=== PATIENT | female | born 1975 | race Caucasian/White ===

== ENCOUNTER 2019-09-07 06:57 | Inpatient (IN) | payer BC ==
[~2019-09-07 06:57] MED LIST: Buffered Lidocaine 1% SYRIN* 1 ML/SYRINGE INTRADERM ONE; Dexamethasone TAB* 4 MG PO ONE; DiMENhydriNATE IV* 50 MG/ML VIAL IV PUSH PRN; Famotidine IV* 10 MG/ML 2 ML (20 mg) IV ONE; HYDROmorphone INJ1* 1 MG/ML SYRINGE IV PRN; Lactated Ringers 1000 ML Bag* 1,000 ML IV SCH; Naloxone* 0.4 MG/ML 1 ML VIAL IV PRN; Ondansetron ODT TAB* 4 MG PO ONE; PROCHLORPERAZINE INJ 5 MG/ML 2 ML VIAL IV PRN; Scopolamine 1.5 mg* PATCH TRANSDERM PRN; fentaNYL* 50 MCG/ML 2 ML VIAL (100 MCG VIAL) IV PRN
--- OUTSIDE RECORDS SUMMARY | 2019-09-07 07:00 | XMS REPORT | Continuity of Care Document ---
:1975 External Reference #:[id number] Author Name Manish Butler DO [facility] (transmitted by agent of provider Cony Mitchell) Address [address] [place] [address] Problems Description No Information Available Social History Type Date Description Comments Sex Unknown Tobacco Use Start: Unknown Never Smoked Cigarettes Smoking Status Reviewed: 07/23/19 Never Smoked Cigarettes ETOH Use Drinks Alcoholic Beverages Occasionally Tobacco Use Start: Unknown Patient has never smoked Exercise Type/Frequency Exercises regularly Allergies, Adverse Reactions, Alerts Active Allergies Reaction Severity Comments Date Penicillins Anaphylaxis 08/02/2016 Keflex Contact dermatitis 08/02/2016 Trulicity 07/23/2019 Medications Active Medications SIG Qnty Indications Ordering Provider Date 1 by mouth every 84tabs Z30.09 Conner Palencia MD 01/05/2019 day 1-20mg-mcg(24) Tablets Ibuprofen as needed Unknown 800mg Tablets Metformin HCL 1 by mouth twice Unknown 500mg a day Tablets Vitamin D 1 by mouth every Unknown 2000Unit day Capsules Levothyroxine Sodium once a day Unknown 100mcg Solution Rec Lisinopril 1 by mouth every Unknown 10mg Tablets day Magnesium 1 by mouth every Unknown 250mg Tablets day Venlafaxine HCL ER 1 capsule daily Unknown 75mg with food Tablets ER 24HR Biotin 1 po daily Unknown 1mg Capsules Radha 2 tabs daily Unknown Capsules Effexor XR 1 by mouth every Unknown 75mg Caps ER day 24HR Vicodin take 1 - 2 by Unknown 5-300mg Tablets mouth every 6 hours as needed History Medications Tinidazole 2 tablets po bid 56tabs Conner Palencia MD 05/18/2019 - 500mg Tablets x 14 days 07/22/2019 Metronidazole 1 pill bid x 7 14tabs Conner Palencia MD 04/14/2019 - 500mg Tablets days 07/22/2019 Metronidazole 1 pill bid x 7 14tabs Sun Gonsalez 02/11/2019 - 500mg Tablets days [employer]-Cde 04/12/2019 Immunizations Description No Information Available Vital Signs Date Vital Result Comment 07/23/2019 1:17pm Height 66 inches 5'6" Weight 286.00 lb with shoes Heart Rate 99 /min BP Systolic 170 mmHg LA BP Diastolic 100 mmHg LA BP Systolic Sitting 170 mmHg Ra BP Diastolic Sitting 96 mmHg Ra BP Systolic Standing 162 mmHg Ra BP Diastolic Standing 90 mmHg Ra BMI (Body Mass Index) 46.2 kg/m2 Ejection Fraction None 05/11/2019 8:12am Height 66 inches 5'6" Weight 280.00 lb BP Systolic 144 mmHg BP Diastolic 86 mmHg Respiratory Rate 16 /min Body Temperature 98.6 F O2 % BldC Oximetry 93 % BMI (Body Mass Index) 45.2 kg/m2 Results Description No Information Available Procedures Description No Information Available Medical Devices Description No Information Available Encounters Type Date Location Provider Dx Diagnosis Office Visit 05/11/2019 [facility] Conner Palencia MD N76.0 Acute vaginitis 8:00a [facility] [place] Office Visit 04/13/2019 [facility] Conner Palencia MD N76.1 Subacute and 8:00a [facility] Assessments Date Code Description Provider 07/23/2019 Z01.810 Encounter for preprocedural Manish Butler DO FAC cardiovascular examination 07/23/2019 R94.31 Abnormal electrocardiogram [ECG] [EKG] Manish Butler DO FACC 05/11/2019 N76.0 Acute vaginitis Conner Palencia MD 04/13/2019 N76.1 Subacute and chronic vaginitis Conner Palencia MD Plan of Treatment 07/23/2019 - Manish Butler DO FACCZ01.810 Encounter for preprocedural cardiovascular examinationNew Orders:Echocardiogram, Ordered: 07/23/19Follow up: Please schedule [place] [facility] [place]may need defin[place]) f/u PRNR94.31 Abnormal electrocardiogram [ECG] [EKG] Functional Status Description No Information Available Mental Status Description No Information Available Referrals Description No Information Available
[2019-09-07] MEDS ORDERED: Ondansetron ODT TAB* 4 MG ONE (07:36)
[2019-09-07] MEDS ORDERED: Clindamycin 900 MG/D5W BAG(*) 900 MG/50 ML BAG IVPB ONE (07:37)
[2019-09-07] MEDS ORDERED: Famotidine IV* 10 MG/ML 2 ML (20 mg) ONE (07:37)
[2019-09-07] MEDS ORDERED: Buffered Lidocaine 1% SYRIN* 1 ML/SYRINGE INTRADERM ONE (07:37)
[2019-09-07] MEDS ORDERED: Dexamethasone TAB* 4 MG ONE (07:37)
[2019-09-07] MEDS ORDERED: Midazolam* 1 MG/ML 5 ML VIAL (5 MG) ONE (07:58)
[2019-09-07] MEDS ORDERED: Rocuronium* 10 MG/ML VIAL ONE (07:58)
[2019-09-07] MEDS ORDERED: fentaNYL* 50 MCG/ML 5 ML VIAL (250 MCG VIAL) ONE (07:58)
[2019-09-07] MEDS ORDERED: KETAMINE HCL* 50 MG/ML 10 ML VIAL ONE (07:58)
[2019-09-07] MEDS ORDERED: Bupivacaine 0.25% W/EPI* 10 ML SDV ONE (08:35)
[2019-09-07] MEDS ORDERED: Heparin VIAL(*) 5000 UNITS/ML VIAL (FIVE THOUSAND) ONE (08:53)
[2019-09-07] MEDS ORDERED: Bupivacaine 0.25% EPI 200,000* 30 ML SDV ONE (09:05)
[2019-09-07] MEDS ORDERED: Propofol* 10 MG/ML 20 ML BTL ONE (09:18)
[2019-09-07] MEDS ORDERED: Lidocaine 2% PF * 5 ML VIAL ONE (09:18)
[2019-09-07] MEDS ORDERED: EPHEDrine (Pressors)* 50 MG/ML VIAL ONE (09:27)
[2019-09-07] MEDS ORDERED: Sugammadex * 200 MG/2 ML VIAL IV PUSH ONE (09:27)
[2019-09-07] MEDS ORDERED: Phenylephrine 10 MG/ML VIAL* 1 ML VIAL ONE (09:29)
[2019-09-07] MEDS ORDERED: Acetaminophen IV 1GM/100ML * 100 ML ONE (09:45)
[2019-09-07] MEDS ORDERED: HYDROmorphone INJ1* 1 MG/ML SYRINGE ONE ×2 (09:55→10:38)
[2019-09-07] MEDS ORDERED: hydrALAZINE IV* 20 MG/ML VIAL ONE (10:04)
[2019-09-07] MEDS ORDERED: Metoprolol Tartrate IV* 1 MG/ML 5 ML VIAL ONE (10:10)
[2019-09-07] MEDS ORDERED: HYDROcodone/ACET. 7.5/325 LIQ* 15 ML UDC PO PRN (10:21)
[2019-09-07] MEDS ORDERED: Acetaminophen ADULT LIQ* 650 MG/20.3 ML UDC PO PRN (10:21)
--- NOTE | 2019-09-07 10:21 | BRIEFOPN ---
Brief Operative/Procedure Note - Operation Details Pre-Op Diagnosis: morbid obesity Post-Op Diagnosis: same Procedures: laparoscopic sleeve gastrectomy Surgeon(s)/Proceduralists: Paula. Assist: CARMEN Concepcion Anesthesia: GET Estimated Blood Loss: < 50 ml; IVF: 1300 ml RL Findings: as above Specimen(s)/Culture(s) Description: portion of stomach Complications: none
[2019-09-07] MEDS ORDERED: DiMENhydriNATE IV* 50 MG/ML VIAL ONE (10:37)
[2019-09-07] MEDS: HYDROmorphone INJ1* 1 MG/ML SYRINGE IV SLOW PU PRN ×2 (10:44→15:06)
[2019-09-07] MEDS ORDERED: Ondansetron INJ* 2 MG/ML VIAL ONE (11:13)
[2019-09-07] MEDS: Ondansetron INJ* 2 MG/ML VIAL IV PRN (11:14)
[2019-09-07] MEDS: Lactated Ringers 1000 ML Bag* 1,000 ML IV SCH ×2 (12:07→18:39)
[2019-09-07] MEDS: Ketorolac INJ* 30 MG/ML 1 ML VIAL IV SCH ×2 (13:14→19:55)
[2019-09-07] MEDS: Heparin VIAL(*) 5000 UNITS/ML VIAL (FIVE THOUSAND) SUBCUT SCH ×2 (15:06→21:28)
[2019-09-07] MEDS ORDERED: Metoclopramide IV* 5 MG/ML 2 ML VIAL IV PRN (15:34)
[2019-09-07] MEDS: Famotidine IV* 10 MG/ML 2 ML (20 mg) IV SLOW PU SCH (21:28)
[2019-09-08] MEDS: Ketorolac INJ* 30 MG/ML 1 ML VIAL IV SCH ×4 (01:20→20:17)
[2019-09-08] MEDS: Lactated Ringers 1000 ML Bag* 1,000 ML IV SCH ×2 (01:24→08:12)
[2019-09-08] MEDS: Ondansetron INJ* 2 MG/ML VIAL IV PRN ×2 (01:28→17:32)
[2019-09-08] MEDS: HYDROmorphone INJ1* 1 MG/ML SYRINGE IV SLOW PU PRN (04:41)
[2019-09-08] MEDS: Heparin VIAL(*) 5000 UNITS/ML VIAL (FIVE THOUSAND) SUBCUT SCH ×3 (06:11→21:41)
--- NOTE | 2019-09-08 07:25 | PN ---
Progress Note - Progress Note Date of Service: 09/08/19 SOAP: Subjective: Had pain and nausea last pm but doing well today. Would like to drink. Objective: Vital Signs Temp 98.4 F 09/08/19 07:20 Pulse 78 09/08/19 07:20 Resp 16 09/08/19 07:20 BP 115/68 09/08/19 07:20 Pulse Ox 96 09/08/19 07:20 Gen: NAD Abd: incisions c/d/i; soft and min tender. Intake & Output 09/07/19 09/08/19 09/08/19 18:59 06:59 18:59 Intake Total 1026 989 Output Total 250 1000 Balance 776 -11 Weight 277 lb 12.8 oz Intake: IV Fluids 1026 989 CLINDAMYCIN 900 MG 50 LR 976 989 Oral 0 0 Output: Urine 250 1000 Other: Estimated Void Medium Medium # Voids 1 1 Assessment: POD#1 s/p LSG. Doing well. Plan: Adv diet. Amb. PO meds. Home late today or AM.
[2019-09-08] MEDS: Famotidine IV* 10 MG/ML 2 ML (20 mg) IV SLOW PU SCH ×2 (08:14→21:35)
[2019-09-08] MEDS: Levothyroxine TAB* 100 MCG TAB PO SCH (08:48)
[2019-09-08] MEDS: Venlafaxine EXT RELEASE CAP* 75 MG PO SCH ×2 (08:48→21:34)
[2019-09-08] MEDS: D5W 1/2 NS KCl 20 Meq 1000 ML* 1,000 ML IV SCH ×2 (10:59→20:11)
--- NOTE | 2019-09-08 21:04 | OP ---
CC: [facility]; Julius Arredondo DO * DATE OF OPERATION: 09/07/19 - ROOM #351 DATE OF : 73 SURGEON: Дмитрий Mitchell MD. DIGITAL LEARNING PLATFORMS MANAGER: CARMEN Ly. ANESTHESIOLOGIST: Quentin Lino MD. ANESTHESIA: General endotracheal. PRE-OP DIAGNOSIS: Clinically severe obesity. POST-OP DIAGNOSIS: Clinically severe obesity. OPERATIVE PROCEDURE: Laparoscopic sleeve gastrectomy. ESTIMATED BLOOD LOSS: Less than 50 mL. IV FLUIDS: 1.3 L of crystalloid. SPECIMENS: Portion of stomach. DRAINS: None. COMPLICATIONS: None. COUNTS: The instrument, needle and sponge counts were correct. DESCRIPTION OF PROCEDURE: The patient was brought to the operating room and placed on the table supine. Sequential compression devices were placed on both lower extremities. General anesthesia was administered. The abdomen was prepped and draped in the usual sterile fashion and a time-out was performed. She received appropriate intravenous antibiotics. After a time-out was performed, local anesthetic was infiltrated into the skin and soft tissue at each incision site. The entry to the abdomen was through a left upper quadrant incision accommodating a 5 mm optical trocar. After accessing the peritoneal cavity, carbon dioxide was insufflated to a pressure of 15 mmHg. Under direct visualization, 12 mm bladeless trocars were placed in the right upper quadrant laterally and supraumbilical midline. Additional 5 mm trocar was placed in the left upper quadrant laterally. Juni liver retractor was placed percutaneously in the subxiphoid position and used to elevate the left lobe of the liver. The gastric anatomy appeared normal. Inspection did not reveal evidence of hiatal hernia. The dissection proceeded from 6 cm proximal to the pylorus on the greater curvature. Utilizing the LigaSure, the greater curvature was skeletonized and the adhesions in the lesser sac were divided. Posterior short gastric near the cardia was divided. The left dontae of the diaphragm was identified. In this manner, the dissection was fully completed. The epigastric fat pad was also dissected off the gastric wall. Next, a sleeve gastrectomy was performed with a series of EndoGIA staplers using purple reinforced cartridges. This was performed over a 40-Amharic bougie. After completing the gastrectomy, the specimen was retrieved through a retrieval bag placed through the right upper quadrant trocar. Subsequently, hemostasis was assured. The ports were removed under direct visualization. Carbon dioxide was released. The skin incisions were closed with 4-0 Monocryl in a subcuticular fashion and DermaFlex was applied. The patient tolerated the procedure well, was extubated uneventfully, and transferred to recovery in stable condition. [id number]/[facility] #: [id number] MTDD
[2019-09-09] MEDS: Ketorolac INJ* 30 MG/ML 1 ML VIAL IV SCH ×2 (01:05→07:15)
[2019-09-09] MEDS: D5W 1/2 NS KCl 20 Meq 1000 ML* 1,000 ML IV SCH (04:24)
[2019-09-09] MEDS: Ondansetron INJ* 2 MG/ML VIAL IV PRN (04:48)
[2019-09-09] MEDS: HYDROmorphone INJ1* 1 MG/ML SYRINGE IV SLOW PU PRN (05:44)
[2019-09-09] MEDS: Heparin VIAL(*) 5000 UNITS/ML VIAL (FIVE THOUSAND) SUBCUT SCH (05:49)
[2019-09-09] MEDS: Levothyroxine TAB* 100 MCG TAB PO SCH (05:57)
[2019-09-09 08:14] VITALS: BP 108/66
[2019-09-09] MEDS: Venlafaxine EXT RELEASE CAP* 75 MG PO SCH (09:14)
[2019-09-09] MEDS: Famotidine IV* 10 MG/ML 2 ML (20 mg) IV SLOW PU SCH (09:14)
--- NOTE | 2019-09-09 09:35 | DS ---
Discharge Summary Surgeon: Dr Mitchell Admit Date: 09/07/19 Discharge Date: 09/09/19 D/C diagnosis: Morbid Obesity Reason For Admission: Morbid Obesity Assessment of Condition at Discharge: Stable Date of D/C PEX: Gen: NAD Chest: CTA B/L CVS: RRR ABD: Incisions C/D/I, + BS's EXT: Calves soft, non tender Labs: surgical path negative Procedures Performed: Laparoscopic Sleeve Gastrectomy Treatment Rendered: Pt was taken to the OR on 09/07 for a laparoscopic sleeve gastrectomy for morbid obesity. Tolerated procedure well, tx'd to [facility] for post operative medical care. post operative period was un eventful, started bariatric clear diet and tolerated well. POD 2 + Flatus and exam as above. D/C home on 09/09 POD 2. Was seen by Dr Mitchell also Discharge instructions were given to the patient regarding Diet, Medications, Activity, and post operative Follow up. All Questions were answered. Discharged Home in Stable Condition on DATE- 09/09/19
[2019-09-10] MEDS ORDERED: Scopolamine PATCH Remove* 1 NOTE MISC PATCH OFF ONE (05:53)
== END 2019-09-09 10:35 | disposition home or self-care (01) | DRG 403 ==
LOC: AA 06:57 → SSU 10:21
PROVIDERS: ADMIT Surgery; ATTEND Surgery
PROC: 0DB64Z3 Excision of Stomach, Percutaneous Endoscopic Approach, Vertical (ICD-10-PCS; principal; 2019-09-07 08:45)
DX: E66.01 Morbid (severe) obesity due to excess calories (principal); Z68.42 Body mass index [BMI] 45.0-49.9, adult; I10 Essential (primary) hypertension; E03.9 Hypothyroidism, unspecified; R73.03 Prediabetes; E28.2 Polycystic ovarian syndrome; G89.29 Other chronic pain; M54.9 Dorsalgia, unspecified; M79.7 Fibromyalgia; F41.9 Anxiety disorder, unspecified; F31.9 Bipolar disorder, unspecified; G47.33 Obstructive sleep apnea (adult) (pediatric); Z79.890 Hormone replacement therapy; Z87.891 Personal history of nicotine dependence; Z88.0 Allergy status to penicillin; Z88.1 Allergy status to other antibiotic agents; Z88.8 Allergy status to other drugs, medicaments and biological substances
CPT/HCPCS: 43775; 81025; 88307; A9270-GY; J0360; J1170; J1240; J1644; J1885; J2250; J2405; J2704; J2765; J3010; J3490; J8540